=== PATIENT | female | born 1995 | race Two or more races ===

== ENCOUNTER 2017-09-19 08:20 | Inpatient (IN) | payer OTHER, MEDICAID, SELFPAY ==
[2017-09-19 07:34] VITALS: BMI 27.6
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
[2017-09-19 09:17] LABS: Hematocrit 33.8 % (37-47); Hemoglobin 10.8 g/dl (12.0-15.0); Mean Corpuscular Volume 81.3 fL (81-99); Mean Platelet Vol. 9.4 fl (6.2-12.0); Platelet Count 211 K/mm3 (150-450); RBC Distribution Width CV 13.6 % (11.6-14.6); RBC Distribution Width SD 40.5 fl (35.1-43.9); Red Blood Count 4.16 M/mm3 (4.2-5.4)
[2017-09-19 09:18] LABS: Scan Indicated on CBC? Y/N NO
--- NOTE | 2017-09-19 10:05 | NURSING ---
care starting at 15 weeks - states it took her a little bit to figure out she was , and then she waited at little to go to the doctor. States she used THC prior to knowing she was , hasn't used since. States repeat tox. screen in office a few days ago - will look for results
[2017-09-19] MEDS: Lactated Ringers 1,000 ML 50 ML IV ×2 (10:20→14:37)
[2017-09-19] MEDS: Ondansetron 4 MG/2 ML Vial IV (10:59)
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
[2017-09-19] MEDS: Oxytocin 30 units/NS 500 ml 30 UNITS/500 ML IV.SOLN IV (13:45)
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
[2017-09-19] MEDS: Oxytocin 30 units/NS 500 ml 30 UNITS/500 ML IV.SOLN 334 UNITS IV (18:15)
[2017-09-19] MEDS: Oxytocin 30 units/NS 500 ml 30 UNITS/500 ML IV.SOLN 167 UNITS IV (18:45)
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
--- NOTE | 2017-09-19 18:51 | DCINST_ITS ---
Discharge Diet: No Restrictions Discharge Activity: Return to Normal Activity, May not drive while taking narcotic pain medications., May Shower May resume sexual activity in: 4-6 weeks Additional Activity Instructions:: Nothing in the vagina for 4-6 weeks. You may return to work/school in 6 weeks. Call your doctor if your incision/area has: Continuous Slow Oozing, Sudden Increased Bleeding, Increased Pain/ Swelling, Increased Redness, Foul Smelling Discharge Additional Instructions: If you experience any of the following, contact your healthcare provider. * Bleeding that soaks a pad every hour for 2 hours * Fever 100.4 or higher * Unrelieved incision or abdominal pain * Swelling, redness, discharge or bleeding from your incision or episiotomy site * Your incision begins to separate * Problems urinating (including inability to urinate or burning while urinating) . * Visual changes * Severe headache * Flu-like symptoms * Pain or redness in one of both of your breasts * Pain, warmth, tenderness or swelling in your legs, especially the calf area * Frequent nausea and vomiting * Symptoms of depression or anxiety If you experience any of the following, call 911 or go to the nearest Emergency Room. * Chest pain * Problems breathing * Seizure activity * Partial or complete paralysis of a body part, slurred speech, weakness or drooping of the face, or a sudden inability to walk or hold your balance Allergies/Adverse Reactions: Allergies amoxicillin Allergy (Verified 09/19/17 07:32) Nausea/Vom/Diarrhea Medications to take at Discharge Vits [Prenatabs FA ] 1 tab PO DAILY 09/19/17 Please Follow Up With: Laura Pruett CNM When: Call to make an appointment with your doctor in 6 weeks. If you had elevated Blood Pressure or 4th degree laceration you will need to be seen in 2 weeks. Primary Care Physician: Care Physician,No Primary [Primary Care Provider] - Proposed Discharge Date: 09/21/17
[2017-09-19] MEDS: 0.9% Saline Lock 10 ML Syringe IV (19:47)
[2017-09-20 00:10] VITALS: BP 105/53; PULSE 93; RESP 16; TEMP 36.9
[2017-09-20 03:20] VITALS: BP 124/71; PULSE 83; RESP 16; TEMP 36.1
[2017-09-20 06:27] LABS: Hematocrit 32.9 % (37-47); Hemoglobin 10.5 g/dl (12.0-15.0); Mean Corp Hgb Conc 31.9 g/gl (32-36); Mean Corpuscular Hgb 26.6 pg (27.0-32.0); Mean Corpuscular Volume 83.3 fL (81-99); Mean Platelet Vol. 9.6 fl (6.2-12.0); Platelet Count 192 K/mm3 (150-450); RBC Distribution Width CV 13.8 % (11.6-14.6); RBC Distribution Width SD 41.6 fl (35.1-43.9); Red Blood Count 3.95 M/mm3 (4.2-5.4); White Blood Count 15.8 K/mm3 (4.4-11.0)
[2017-09-20 06:34] LABS: Scan Indicated on CBC? Y/N NO
[2017-09-20 07:44] VITALS: BP 110/61; PULSE 90; RESP 16; TEMP 37
--- NOTE | 2017-09-20 08:20 | PCM.PN.BLA ---
Progress Note S: Patient standing at bedside bonding with and reporting she is anticipating family and friend visitors soon. Patient denies any issues throughout the night. Has made plan to bottlefeed formula to . Patient denies FLOYD, scotoma or dizziness. Denies any issues with urination or ambulation O: VSS, Afebrile Nipples without cracks, breasts soft Abdomen NT x 4 quadrants, FF midline @ umbilicus Small rubra lochia, perineum well-approximated +2/4 reflexes in LE, no edema noted, neg tenderness to palpation of calves A:22 y/o G1 now P1, s/p without complication, PPD #1 P: 1) Advantages of colostrum and breastmilk again reviewed - patient continues to decline this option of feeding her child 2) Continue PP care 3) Anticipate discharge to home tomorrow Laura Pruett APRN-JENNIFER
[2017-09-20 11:10] VITALS: BP 119/70; PULSE 86; RESP 16; TEMP 36.7
[2017-09-20] MEDS: Acetaminophen 500 MG Tablet 1000 MG PO (15:39)
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
[2017-09-20 16:35] VITALS: BP 102/56; PULSE 99; RESP 18; TEMP 36.8; O2SAT 99
[2017-09-20] MEDS: Ibuprofen 600 MG Tablet PO (20:31)
[2017-09-20 21:00] VITALS: BP 103/59; PULSE 77; RESP 17; TEMP 36.5
[2017-09-21 04:00] VITALS: PULSE 77; RESP 16
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
[2017-09-21 10:00] VITALS: BP 110/64; PULSE 90; RESP 18; TEMP 36.9
--- NOTE | 2017-09-21 18:14 | NURSING ---
12noon Discharged to home with baby. States she is ready to go home and is comfortable caring for herself and her baby.
--- NOTE | 2017-09-23 09:09 | CASEMGMT ---
Social Work Note Labor and Delivery Unit [facility] [place] Nurse visit referral made today. Faxed referral to confirmed fax number at [phone]. No other services requested or indicated. -ISREAL Gaxiola, CUTTING AND PRINTING MACHINE OPERATOR
== END 2017-09-21 12:00 | disposition home or self-care (01) | DRG 775 ==
LOC: WPOUT 08:28
PROVIDERS: Advanced Practice Midwife; Obstetrics & Gynecology; Admitting Provider Obstetrics & Gynecology; Visit Provider Obstetrics & Gynecology
DX: O70.0 First degree perineal laceration during delivery (principal); O99.321 Drug use complicating pregnancy, first trimester; F12.90 Cannabis use, unspecified, uncomplicated; Z91.410 Personal history of adult physical and sexual abuse; Z3A.38 38 weeks gestation of pregnancy; Z37.0 Single live birth
CPT/HCPCS: 59025; 59050; 85027; 85461; 86850; 86900; 90384; 99218; J7120; A4216; G0378; J2405; J2790